=== PATIENT | female | born 1980 | race Caucasian/White ===

== ENCOUNTER 2018-09-28 12:44 | Emergency (ER) | payer BC ==
[~2018-09-28] VITALS: Ht 177.8 cm; Wt 68.0 kg
--- NOTE | 2018-09-28 13:19 | PHYS DOC ---
Past History Past Medical History: No Pertinent History Additional Past Surgical Histo: thyroid mass removal Smoking: Non-smoker Alcohol Use: Rarely Drug Use: None Adult General Chief Complaint Chief Complaint: MULTIPLE TRAUMA/FALL HPI HPI 38 yo F presenting with left hand pain and head injury after getting kicked in the head and hand by a horse. Denies LOC. denies neck pain. Pain in the hand is sharp mild nonradiating and better with ice. No other injuries. ROS is neg for cp,soa, neck pain or elbow pain. All other review of systems is negative unless otherwise noted in history of present illness. ED course: 38 yo f with hand pain and head injury and a lac to the forehead. I had a risk-benefit discussion with the patient about closure with sutures versus glue. Patient prefers clue. I explained that there may be a better cosmetic outcome with sutures. Patient demonstrates understanding. The wound was washed out. No foreign bodies in the wound. Glue placed. Workup including head CT and x-rays of the hand negative.The patient has been examined and was not found to have an emergency medical condition. The patient was then discharged home in stable condition to follow up with their primary care physician over the next 1-2 days. They were to return if their symptoms worsened or if they were concerned for any reason. They were also instructed to return to the emergency department if they were unable to get the recommended and appropriate follow-up. [id number] discharge instructions and return precautions were given. Patient's questions were answered to their satisfaction. Patient is comfortable with plan. Review of Systems Review of Systems SEE ABOVE. Physical Exam Physical Exam SEE ABOVE Constitutional: Well developed, well nourished, no acute distress, non-toxic appearance. [] HENT: Normocephalic, 1 cm lac to the right forehead. no foreign bodies. bilateral external ears normal, oropharynx moist, no oral exudates, nose normal. [] Eyes: PERRLA, EOMI, conjunctiva normal, no discharge. [] Neck: Normal range of motion, no tenderness, supple, no stridor. [] Cardiovascular:Heart rate regular rhythm, no murmur [] Lungs & Thorax: Bilateral breath sounds clear to auscultation [] Abdomen: Bowel sounds normal, soft, no tenderness, no masses, no pulsatile masses. [] Skin: Warm, dry, no erythema, no rash. [] Back: No tenderness, no CVA tenderness. [] Extremities: left hand is nvi with 2 sec cap refill. nontender wrist and elbow. other ext were unremarkable. Neurologic: Alert and oriented X 3, normal motor function, normal sensory function, no focal deficits noted. naval aircrewman intact. Psychologic: Affect normal, judgement normal, mood normal. [] EKG EKG [] Radiology/Procedures Radiology/Procedures [] Course & Med Decision Making Course & Med Decision Making Pertinent Labs and Imaging studies reviewed. (See chart for details) [] Dragon Disclaimer Dragon Disclaimer This electronic medical record was generated, in whole or in part, using a voice recognition dictation system. Departure Departure: Impression: Primary Impression: Head injury Additional Impression: Injury of left hand Disposition: HOME, SELF-CARE Condition: STABLE Referrals: ZHENG DODSON DO (PCP) Patient Instructions: Facial Laceration, [id number] Additional Instructions: Thank you for allowing us to participate in your care today. Remember to confirm that your tetanus is up to date when you get home. if more than five years you will need an up date. Return to the emergency department you have any new or worsening symptoms, or if you are concerned for any reason. Return to emergency department if you have any new or concerning symptoms including but not limited to fever, chills, nausea, vomiting, intractable pain, any new rashes, chest pain, shortness of air , uncontrolled bleeding, difficulty breathing, and/or vision loss. Follow up with your primary care physician within 1-2 days. Call your Primary Doctor tomorrow and inform them of your visit today. If you do not have a primary care provider we are happy to provide you with a list of our primary care providers contact information. This condition should be evaluated by your primary care physician and any recommended consulting services for continued management within 2 days after discharge. If at any time, you are having difficulty getting into your primary care doctor or a specialist, return to the emergency department. Laceration Repair Lac Repair Indication: []lac Procedure: The patient's wound on the forehead was cleansed with saline and loose applied to the wound to reapproximate the wound. Total repaired wound length: 1cm. Other Items: none The patient tolerated the procedure well. Complications: none. Problem Qualifiers GEORGINA SCHMID MD Sep 28, 2018 13:19
[2018-09-28 13:20] VITALS: BP 100/43
--- NOTE | 2018-09-28 13:30 | RAD ---
EXAM: Head CT without contrast. HISTORY: Blunt trauma. Laceration. TECHNIQUE: Computed tomographic images of the head were obtained without contrast. *One or more of the following individualized dose reduction techniques were utilized for this examination: 1. Automated exposure control. 2. Adjustment of the mA and/or kV according to patient size. 3. Use of iterative reconstruction technique. COMPARISON: None. FINDINGS: There is no acute or subacute extra-axial or intraparenchymal hemorrhage. There is no mass effect or midline shift. There is no hydrocephalus. The romero-white matter differentiation pattern is intact. The visualized portions of the orbits, paranasal sinuses and mastoid air cells are unremarkable. No suspicious calvarial lesion is seen. IMPRESSION: No acute intracranial findings. Electronically signed by: Alyse Shearer MD (09/28/2018 1:27 PM) [facility]
--- NOTE | 2018-09-28 13:32 | RAD ---
EXAM: Left hand, 3 views. HISTORY: Blunt trauma. COMPARISON: None. FINDINGS: 3 views left hand are obtained. There is no fracture, dislocation or subluxation. IMPRESSION: No acute osseous finding. Electronically signed by: Alyse Shearer MD (09/28/2018 1:28 PM) [place] [id number]
== END 2018-09-28 13:55 | disposition home or self-care (01) ==
LOC: ER 12:44
DX: S01.81XA Laceration without foreign body of other part of head, initial encounter (principal); S69.92XA Unspecified injury of left wrist, hand and finger(s), initial encounter; W55.12XA Struck by horse, initial encounter; Y93.89 Activity, other specified; Y92.89 Other specified places as the place of occurrence of the external cause; Y99.8 Other external cause status
CPT/HCPCS: 12011; 70450; 73130; 99284-25